=== PATIENT | male | born 1940 | race Caucasian/White ===

== ENCOUNTER 2017-03-29 12:06 | Day surgery (SDC) | payer MEDICARE, BC ==
[2017-03-29] MEDS ORDERED: BUPIVACAINE HCL 0.25% MPF 10 ML SOL INFIL ONE (12:54)
[2017-03-29] MEDS ORDERED: DEXAMETHASONE SOD PHOS PF 10 MG/ML SOL IJ ONE (12:54)
[2017-03-29 13:35] VITALS: RESP 20; TEMP 98.2
[2017-03-29 13:45] VITALS: BP 147/79; PULSE 65; O2SAT 95
== END 2017-03-29 13:50 | disposition home or self-care (01) | DRG 552 ==
LOC: SURG 12:06
PROVIDERS: ATTEND Nurse Anesthetist, Certified Registered
DX: M48.062 Spinal stenosis, lumbar region with neurogenic claudication (principal)
CPT/HCPCS: J1100

== ENCOUNTER 2017-04-27 12:11 | Day surgery (SDC) | payer MEDICARE, BC ==
[2017-04-27] MEDS ORDERED: BUPIVACAINE HCL 0.25% MPF 10 ML SOL INFIL ONE (12:32)
[2017-04-27] MEDS: TRIAMCINOLONE ACETONIDE 40 MG/ML SUS ONE ×3 (12:46→12:52)
[2017-04-27 13:04] VITALS: RESP 20; TEMP 97.8
[2017-04-27 13:20] VITALS: BP 140/76; PULSE 70; O2SAT 98
== END 2017-04-27 13:35 | disposition home or self-care (01) | DRG 554 ==
LOC: SURG 12:11
PROVIDERS: ATTEND Nurse Anesthetist, Certified Registered
DX: M12.88 Other specific arthropathies, not elsewhere classified, other specified site (principal)
CPT/HCPCS: J3300